=== PATIENT | male | born 1960 | race Caucasian/White ===

== ENCOUNTER 2016-11-05 10:45 | Day surgery (SDC) | payer OTHER ==
[~2016-11-05] VITALS: Ht 172.7 cm; Wt 88.1 kg
--- NOTE | ~2016-11-05 | OR ---
PATIENT'S NAME: [facility] AGE: 56 Y [address] ROOM: [place] [address] [place] [facility] [place]: 11/05/2016 OR/Procedure Report DISCHARGE DATE: 11/05/2016 FAMILY PHYSICIAN: Sergio Martinez PA-C ATTENDING PHYSICIAN: Phillip Cobos SURGEON: Phillip Cobos MD ASP NET PROGRAMMER: None. DATE OF PROCEDURE: 11/05/2016 PREOPERATIVE DIAGNOSIS: Left mandibular angle fracture. POSTOPERATIVE DIAGNOSIS: Left mandibular angle fracture. PROCEDURES PERFORMED: Hybrid maxillomandibular fixation. ANESTHESIA: General nasotracheal. COMPLICATIONS: None. BLOOD LOSS: Less than 5 mL. SPECIMENS: None. FINDINGS: Excellent reduction and occlusion after application of MMF. INDICATIONS: The patient is a pleasant 56-year-old male, who was working with a horse when he was struck in the face, and this resulted in the left mandibular angle fracture. Conservative management at home failed as he was unable to comply with the soft diet. He agreed with the recommendation for a maxillomandibular fixation after discussing the risks, benefits, and alternatives. PROCEDURE IN DETAIL: The patient was brought from the preoperative area to the Operating Suite, and placed on the table in a supine position. All pressure points were padded. A time-out was performed, correctly identifying the patient and the procedure. General nasotracheal anesthesia was initiated. The patient was prepped and draped in a clean fashion. The oral cavity was exposed. The teeth were brought into their previous occlusion as identified by the wear facets on the teeth. This was performed without difficulty. The Hybrid arch bars were placed maxillary first, followed by mandibular using 6- mm screws for the maxillary side and 8-mm screws for the mandibular side, with exception of a single 6-mm screw at the left mandibular angle due to difficulty with advancement of the screw in this location. Once these screws had been placed and arch bars were placed appropriately, 24 and 26-gauge wires were placed a total of six to achieve maximum mandibular fixation. This PATIENT'S NAME: [facility] AGE: 56 Y [address] ROOM: [place] [address] [place] [facility] [place]: 11/05/2016 OR/Procedure Report DISCHARGE DATE: 11/05/2016 FAMILY PHYSICIAN: Sergio Martinez PA-C ATTENDING PHYSICIAN: Phillip Cobos concluded the procedure. POSTOPERATIVE CONDITION AND DISPOSITION: The patient was returned to the care of Anesthesia for extubation and transferred to recovery room in stable condition. MD STACY SOUSA/miltonl /[id number] d: 11/06/16 0206 t: 11/06/16 1117, OPERATIVE SUMMARY
[~2016-11-05 10:45] MED LIST: 24HOUR ALLERGY10 MG PO; ADVIL200 MG PO; ARICEPT10 MG PO; ASPIRIN EC81 MG PO; FLONASE 50 MCG/16 GM NOSE; GUAIFENESIN400 MG PO; HYDRODIURIL12.5 MG PO; LIPITOR20 M1 PO; LORTAB ELIXI15 ML/UD PO; MIRALAX17 GM PO; PENICILLIN V P500 MG PO; PREVAGEN PO; PRINIVIL OR ZES10 MG PO; PROBIOTIC1 EAC1 PO; SENNA8.6 MG PO; STOOL SOFTENER1 EACH PO; TAB-A-VITE1 EACH PO
[2016-11-05] MEDS ORDERED: LORTAB ELIXI15 ML/UD PO (19:09)
== END 2016-11-05 20:35 | disposition disaster alternative care site (69) ==
LOC: GSDC 10:45 → GPOC 15:00 → GSDC 20:35
PROC: 0NHV34Z Insertion of Internal Fixation Device into Left Mandible, Percutaneous Approach (ICD-10-PCS; principal; 2016-11-05)
PROC: [UNRECOGNIZED PROCEDURE] (2016-11-05)
DX: S02.652A Fracture of angle of left mandible, initial encounter for closed fracture (principal); F41.9 Anxiety disorder, unspecified; I10 Essential (primary) hypertension; E78.00 Pure hypercholesterolemia, unspecified; Z98.890 Other specified postprocedural states; Z79.82 Long term (current) use of aspirin; Z79.899 Other long term (current) drug therapy; X58.XXXA Exposure to other specified factors, initial encounter
CPT/HCPCS: C1713; J2001; J3010; J7120